=== PATIENT | female | born 1985 | race Caucasian/White ===

== ENCOUNTER 2018-01-30 18:38 | Emergency (ER) | payer OTHER ==
[~2018-01-30] VITALS: Ht 165.1 cm; Wt 66.7 kg
[2018-01-30 19:27] LABS: BASOPHILS # (AUTO) 0.05 x10^3/uL (0-0.1); BASOPHILS % (AUTO) 0 % (0-1); EOSINOPHILS # (AUTO) 0.57 x10^3/uL (0-0.4); EOSINOPHILS % (AUTO) 5 % (1-7); LYMPHOCYTES # (AUTO) 3.08 x10^3/uL (1-3.4); LYMPHOCYTES % (AUTO) 24 % (22-44); MD NO; MEAN CORPUSCULAR HEMOGLOBIN 30.6 pg (27.0-34.8); MEAN CORPUSCULAR VOLUME 89.9 fL (80-100); MEAN PLATELET VOLUME 8.7 fL (7.4-10.4); MONOCYTES # (AUTO) 0.72 x10^3/uL (0.2-0.8); MONOCYTES % (AUTO) 6 % (2-9); NEUTROPHILS # (AUTO) 8.24 x10^3/uL (1.8-6.8); NEUTROPHILS % (AUTO) 65 % (42-75); PLATELET COUNT 378 x10^3/uL (130-400); RED BLOOD COUNT 4.86 x10^6/uL (3.82-5.3); RED CELL DISTRIBUTION WIDTH 13.3 % (9.6-15.2)
[2018-01-30 19:40] LABS: ALANINE AMINOTRANSFERASE 40 U/L (12-78); ALBUMIN 3.6 g/dL (3.4-5.0); ANION GAP 8 mmol/L (5-15); CALCIUM 9.1 mg/dL (8.5-10.1); CHLORIDE 109 mmol/L (98-107); CREATININE 0.65 mg/dL (0.55-1.02); T4 (THYROXINE) 10.1 mcg/dL (4.8-13.9)
[2018-01-30 19:44] LABS: ALKALINE PHOSPHATASE 59 U/L (45-117); BILIRUBIN,TOTAL 0.3 mg/dL (0.2-1.0); TOTAL PROTEIN 8.1 g/dL (6.4-8.2); TROPONIN I < 0.015 ng/mL (0.000-0.045)
[2018-01-30 20:44] VITALS: BP 112/72
== END 2018-01-30 20:55 | disposition home or self-care (01) ==
LOC: ED 20:50
DX: R00.2 Palpitations (principal); F41.1 Generalized anxiety disorder
CPT/HCPCS: 36415; 71046; 80053; 84436; 84443; 84484; 85025; 85379; 93005; 99285

== ENCOUNTER 2018-02-11 14:21 | Day surgery (SDC) | payer OTHER ==
[~2018-02-11] VITALS: Ht 162.6 cm; Wt 68.6 kg
[2018-02-11] MEDS ORDERED: ONDANSETRON ODT 4 MG PO ONE (14:30)
[2018-02-11] MEDS ORDERED: ONDANSETRON ODT 4 MG ONE (14:35)
[2018-02-11] MEDS ORDERED: PROP20TA PO (14:52)
[2018-02-11] MEDS ORDERED: HYDROmorphone 2 MG/ML, 1ML IVPush PRN (15:00)
[2018-02-11] MEDS ORDERED: SODIUM CHLORIDE FLUSH 10ML SYR IVF ONE (15:00)
[2018-02-11] MEDS ORDERED: ONDANSETRON 2MG/ML, 2ML IVPush ONE (15:00)
[2018-02-11] MEDS ORDERED: MAALOX/HYOSCYAMINE/LIDOCAINE 45 ML BTL PO ONE (15:00)
[2018-02-11] MEDS ORDERED: MORPHINE SULFATE 4 MG/ML, 1ML IVPush PRN ×2 (15:00→21:00)
[2018-02-11] MEDS ORDERED: CITA40TA12 PO (15:00)
[2018-02-11] MEDS ORDERED: MAALOX/HYOSCYAMINE/LIDOCAINE 45 ML BTL ONE (15:02)
[2018-02-11] MEDS ORDERED: MORPHINE SULFATE 4 MG/ML, 1ML ONE (15:02)
[2018-02-11] MEDS ORDERED: ONDANSETRON 2MG/ML, 2ML ONE ×2 (15:02→17:37)
[2018-02-11 15:06] LABS: MEAN CORPUSCULAR HEMOGLOBIN 30.8 pg (27.0-34.8); MEAN CORPUSCULAR HGB CONC 34.4 g/dL (32.4-35.8); MEAN CORPUSCULAR VOLUME 89.6 fL (80-100); MEAN PLATELET VOLUME 9.1 fL (7.4-10.4); PLATELET COUNT 393 x10^3/uL (130-400); RED BLOOD COUNT 5.07 x10^6/uL (3.82-5.3); RED CELL DISTRIBUTION WIDTH 13.2 % (9.6-15.2)
[2018-02-11 15:17] LABS: ALANINE AMINOTRANSFERASE 42 U/L (12-78); ALBUMIN 3.8 g/dL (3.4-5.0); ANION GAP 12 mmol/L (5-15); CALCIUM 9.1 mg/dL (8.5-10.1); CHLORIDE 103 mmol/L (98-107); CREATININE 0.78 mg/dL (0.55-1.02)
[2018-02-11 15:19] LABS: ALKALINE PHOSPHATASE 70 U/L (45-117); BILIRUBIN,TOTAL 0.6 mg/dL (0.2-1.0); TOTAL PROTEIN 8.3 g/dL (6.4-8.2)
[2018-02-11 15:20] LABS: TROPONIN I < 0.015 ng/mL (0.000-0.045)
[2018-02-11 15:50] LABS: MD YES
[2018-02-11 15:54] LABS: BAND#(MANUAL) 0.41 x10^3/uL; BANDS%(MANUAL) 2 % (0-7); EOS#(MANUAL) 0.62 x10^3/uL (0.0-0.4); EOS% (MANUAL) 3 % (1-7); LYMPH#(MANUAL) 1.45 x10^3/uL (1-3.4); LYMPHS% (MANUAL) 7 % (22-44); MONOS#(MANUAL) 1.04 x10^3/uL (0.3-2.7); MONOS% (MANUAL) 5 % (2-9); SEG#(MANUAL) 17.18 x10^3/uL (1.8-6.8); SEGS% (MANUAL) 83 % (42-75)
[2018-02-11 15:55] LABS: <PLATELET ESTIMATE> ADEQUATE; <PLT MORPHOLOGY> NORMAL PLT MORPH; <RBC MORPHOLOGY> NORMAL
[2018-02-11 16:00] LABS: MICROSCOPIC INDICATED
[2018-02-11] MEDS ORDERED: OMNIPAQUE 350 MG/ML, 100ML BOTTLE ONE (16:09)
[2018-02-11] MEDS ORDERED: CEFOTETAN PMX 1GM/50ML 50 ML IVPB ONE (16:30)
[2018-02-11 16:31] LABS: CULTURE INDICATED? YES
[2018-02-11] MEDS ORDERED: CEFOTETAN PMX 1GM/50ML 50 ML ONE (16:41)
[2018-02-11] MEDS ORDERED: SODIUM CHLORIDE FLUSH 10ML SYR IVF PRN (17:00)
[2018-02-11] MEDS ORDERED: SODIUM CHLORIDE 0.9% 1,000ML IVBOLUS ONE (17:00)
[2018-02-11] MEDS ORDERED: FENTANYL PF 100 MCG/2ML IV PRN (17:30)
[2018-02-11] MEDS ORDERED: LABETALOL 5MG/ML, 20ML IV PRN (17:30)
[2018-02-11] MEDS ORDERED: ONDANSETRON ODT 8 MG PO PRN (17:30)
[2018-02-11] MEDS ORDERED: OXYcodone 5 MG/5 ML ORAL.SOL UDC PO PRN (17:30)
[2018-02-11] MEDS ORDERED: SCOPOLAMINE PATCH, 1.5MG PATCH.TD72 TD PRN (17:30)
[2018-02-11] MEDS ORDERED: MIDAZOLAM 1 MG/ML, 2ML IV PRN (17:30)
[2018-02-11] MEDS ORDERED: ALBUTEROL/IPRATROPIUM 2.5MG/0.5MG, 3 ML NPPB PRN (17:30)
[2018-02-11] MEDS ORDERED: MEPERIDINE/PF 25MG/0.5ML IVPush PRN (17:30)
[2018-02-11] MEDS ORDERED: HYDROmorphone 1 MG/ML, 1ML IV PRN (17:30)
[2018-02-11] MEDS ORDERED: EPHEDRINE 50 MG/ML, 1ML IM PRN (17:30)
[2018-02-11] MEDS ORDERED: PROMETHAZINE 25 MG SUPP PR PRN (17:30)
[2018-02-11] MEDS ORDERED: ACETAMINOPHEN 325 MG TABLET PO PRN (17:30)
[2018-02-11] MEDS ORDERED: BUPIVACAINE/PF-EPI 0.5% 1:200K ONE (17:32)
[2018-02-11] MEDS ORDERED: FENTANYL PF 250 MCG/5ML ONE (17:34)
[2018-02-11] MEDS ORDERED: MIDAZOLAM 1 MG/ML, 2ML ONE (17:34)
[2018-02-11] MEDS ORDERED: GLYCOPYRROLATE 0.2MG/1ML, 5ML ONE (17:37)
[2018-02-11] MEDS ORDERED: ROCURONIUM 10MG/ML,5ML ONE (17:37)
[2018-02-11] MEDS ORDERED: SUCCINYLCHOLINE 20 MG/ML, 10ML ONE (17:37)
[2018-02-11] MEDS ORDERED: PROPOFOL 10 MG/ML, 20ML ONE (17:37)
[2018-02-11] MEDS ORDERED: DEXAMETHASONE 4 MG/ML, 1ML ONE (17:37)
[2018-02-11] MEDS ORDERED: NEOSTIGMINE 1 MG/ML, 10ML ONE (17:37)
[2018-02-11] MEDS ORDERED: KETOROLAC 30 MG/1 ML ONE (17:56)
[2018-02-11] MEDS ORDERED: LIDOCAINE-MPF 2% ,5ML ONE (17:56)
[2018-02-11] MEDS ORDERED: OXYcodone 5 MG/5 ML ORAL.SOL UDC ONE (19:11)
[2018-02-11] MEDS ORDERED: ACETAMINOPHEN 650 MG/20.3 ML UDC ONE (19:11)
[2018-02-11 19:45] VITALS: BP 109/76
[2018-02-11] MEDS ORDERED: HYDR-3240 PO (20:12)
[2018-02-11] MEDS ORDERED: ONDA4TAB7 PO (20:13)
[2018-02-11] MEDS ORDERED: HYDROcodone/APAP 5/325 TABLET PO PRN (21:00)
[2018-02-11] MEDS ORDERED: ONDANSETRON 2MG/ML, 2ML IVPush PRN (21:00)
== END 2018-02-11 21:00 | disposition home or self-care (01) ==
LOC: ED 16:19 → EDIP 16:57 → OR 16:57 → UNDOADMIN 16:57 → 4NOR 19:42 → EDIP 19:42 → OR 21:00 → UNDODISIN 21:45
PROVIDERS: ATTEND Surgery Vascular Surgery
DX: K35.80 Unspecified acute appendicitis (principal)
CPT/HCPCS: 36415; 44970; 74177; 80053; 81001; 83690; 84484; 84703; 85025; 87086; 88304; 93005; J0330; J1100; J1885; J2250; J2405; J2704; J2710; J3010; J3490; J7030; Q9967; S0074; G0378

== ENCOUNTER 2018-11-08 12:29 | Emergency (ER) | payer MEDICAID, OTHER ==
[~2018-11-08] VITALS: Ht 162.6 cm; Wt 67.4 kg
[2018-11-08 13:12] VITALS: BP 129/92
== END 2018-11-08 13:57 | disposition home or self-care (01) ==
LOC: ED 13:45
DX: R00.2 Palpitations (principal); R06.00 Dyspnea, unspecified; F41.1 Generalized anxiety disorder; F32.9 Major depressive disorder, single episode, unspecified
CPT/HCPCS: 36415; 71045; 80053; 84443; 85025; 93005; 99284

== ENCOUNTER 2019-05-16 14:50 | Emergency (ER) | payer SELFPAY ==
[~2019-05-16] VITALS: Ht 162.6 cm; Wt 64.0 kg
[~2019-05-16 14:50] MED LIST: CITA40TA12 PO; HYDR-3240 PO; ONDA4TAB7 PO; PROP20TA PO
[2019-05-16 15:23] LABS: BASOPHILS # (AUTO) 0.02 x10^3/uL (0-0.1); BASOPHILS % (AUTO) 0 % (0-1); EOSINOPHILS # (AUTO) 0.18 x10^3/uL (0-0.4); EOSINOPHILS % (AUTO) 2 % (1-7); LYMPHOCYTES # (AUTO) 1.81 x10^3/uL (1-3.4); LYMPHOCYTES % (AUTO) 16 % (22-44); MD NO; MEAN CORPUSCULAR HEMOGLOBIN 30.3 pg (27.0-34.8); MEAN CORPUSCULAR HGB CONC 33.8 g/dL (32.4-35.8); MEAN CORPUSCULAR VOLUME 89.6 fL (80-100); MEAN PLATELET VOLUME 8.6 fL (7.4-10.4); MONOCYTES # (AUTO) 0.52 x10^3/uL (0.2-0.8); MONOCYTES % (AUTO) 4 % (2-9); NEUTROPHILS % (AUTO) 78 % (42-75); PLATELET COUNT 367 x10^3/uL (130-400); RED BLOOD COUNT 5.23 x10^6/uL (3.82-5.3); RED CELL DISTRIBUTION WIDTH 13.4 % (9.6-15.2)
[2019-05-16 15:33] LABS: ALBUMIN 3.7 g/dL (3.4-5.0); ANION GAP 8 mmol/L (5-15); CHLORIDE 106 mmol/L (98-107); CREATININE 0.68 mg/dL (0.55-1.02)
--- NOTE | 2019-05-16 15:42 | NUR ---
[employer]TAIN: PT TO ROOM FROM [facility] MCARTHUR
[2019-05-16] MEDS ORDERED: ESCI20TA10 PO (15:55)
--- NOTE | 2019-05-16 15:56 | NUR ---
DR YANG AT BEDSIDE, PT ASSESSMENT REVEIWED AND ORDERS REC'D. PT OOB AND AMBULATED TO EYE CHART, UPRIGHT STEADY GAIT. VISUAL ACUITY'S COMPLETED AND PT RTD TO ROOM W/O INCIDENT. CALL LIGHT W/I REACH.
[2019-05-16 17:06] VITALS: BP 132/84
--- NOTE | 2019-05-16 17:07 | NUR ---
Patient/Caregiver given discharge instructions and they have confirmed that they understand the instructions. Patient ambulatory with steady gait.
== END 2019-05-16 18:02 | disposition home or self-care (01) ==
LOC: ED 17:00
DX: G43.909 Migraine, unspecified, not intractable, without status migrainosus (principal); H53.8 Other visual disturbances
CPT/HCPCS: 36415; 80048; 82040; 85025; 93005; 99284